=== PATIENT | female | born 1955 | race Caucasian/White ===

== ENCOUNTER 2018-10-17 00:26 | Inpatient (IN) | payer BC ==
[~2018-10-17] VITALS: Ht 154.9 cm; Wt 97.5 kg
--- NOTE | ~2018-10-17 | CON ---
[address] [address] CONSULTATION Name: AYUSH LUDWIG Room: [address] IN M.R.#: [id number] Admission: 10/17/18 Attend Phys: Mark Anthony Eldridge MD Discharge: Date of : 59 Report #: [id number] THIS REPORT FOR: //name// CC: Sawyer Eldridge DATE OF SERVICE: 10/17/2018 HISTORY OF PRESENT ILLNESS: This is a pleasant 63-year-old female with no significant past medical history who is presenting with intractable nausea, vomiting and diarrhea. The patient reports the symptoms started about 4 days back with acute onset abdominal pain and diarrhea. The patient had about 3-4 loose stools over the course of the day. The patient reports associated epigastric abdominal pain along with nausea and vomiting. The patient reports clear and bilious emesis and denies any hematemesis. The patient also reports her stools are yellow and brown in color and loose in consistency without any blood in them. The patient reports associated fevers, chills and malaise. These symptoms initially resolved a little bit 3 days back and then worsened on Thursday, which prompted her ER visit yesterday. The patient continues to report about 7/10 abdominal pain in the epigastric region. The pain is localized, nonradiating and appears to be relieved only by pain medication. It is associated with nausea. The patient denies any weight loss. The patient has never had an EGD, but reports she had a colonoscopy a few years back. PAST MEDICAL HISTORY: The patient has history of hypertension, depression, hypothyroidism and osteoporosis. PAST SURGICAL HISTORY: The patient had hysterectomy, appendectomy, cholecystectomy and tonsillectomy in the remote past. SOCIAL HISTORY: The patient denies smoking, alcohol or recreational drug use. FAMILY HISTORY: There is no family history of colorectal cancer. REVIEW OF SYSTEMS: Comprehensive 10-point review of systems is negative except for what is mentioned in the HPI. PHYSICAL EXAMINATION: VITAL SIGNS: Temperature 36.6, pulse rate 73, respirations 18, blood pressure 118/70, pulse ox 98% on room air. GENERAL: The patient is alert, awake, oriented x 3. HEENT: Pupils are equal, round, reactive to light and accommodation. Mucous membranes are moist. NECK: [place] [address] CONSULTATION Name: AYUSH LUDWIG Sushil Room: [address]#: [id number] Admission: 10/17/18 Attend Phys: Mark Anthony Eldridge MD Discharge: Date of : 59 Report #: [id number] LUNGS: Clear to auscultation bilaterally. CARDIOVASCULAR: Rate and rhythm regular, S1, S2 present. ABDOMEN: Soft. There is no distention, guarding or rigidity. EXTREMITIES: Warm and well perfused. There is no guarding or rigidity. LABORATORY DATA: Hemoglobin 14.4, hematocrit 42.9, platelet count 259, WBC count 7.3. Sodium 142, potassium 3.6, chloride 106, bicarbonate 26, BUN 13, creatinine 1.1, total bilirubin 0.4, AST 26, ALT 50, alkaline phosphatase 77. UA positive for bacteria and leukocyte esterase. IMAGING STUDIES: CT abdomen and pelvis demonstrates fluid building in the ascending and transverse colon with small amounts of formed stool in the distal colon. Appearance is suggestive of resolving gastroenteritis. Slight prominence of nodes in the mesenteric root with mild edema. ASSESSMENT AND PLAN: A pleasant 63-year-old female with past medical history of hypertension, depression, hypothyroidism who is presenting with acute onset of abdominal pain, nausea, vomiting, diarrhea, fevers and chills. The GI Service has been consulted for further evaluation. I suspect this is related to viral gastroenteritis and the patient will improve with supportive therapy. If the patient does not improve in the next 24-48 hours, other interventions can be considered. I would continue IV antibiotic and place the patient on GI cocktail as needed. Thank you for this consult. By: [id number] Betts MD /josé luis
[~2018-10-17 00:26] MED LIST: AMBIEN 10 MG TA10 MG PO; AMLODIPINE BESY10 MG PO; COZAAR 50 MG TA50 M1; COZAAR 50 MG TA50 M1 PO; DEXILANT60 MG; FLUOXETINE HCL40 MG PO; HYDROCODONE-AP1 EAC6 PO; LEVOTHROID100 MC1; NEURONTIN 300300 M1 PO; PHENERGAN 25 MG25 M1 PO; SYNTHROID; SYNTHROID112 MC1 PO; TRAMADOL 50 MG50 MG PO; XARELTO10 MG PO
[2018-10-17 00:33] VITALS: BP 144/75
[2018-10-17] MEDS ORDERED: ALENDRONATE SOD70 MG PO (00:40)
[2018-10-17 01:00] LABS: ABSOLUTE BASOPHILS 0.1 thou/uL (0.0-0.2); ABSOLUTE EOSINOPHILS 0.1 thou/uL (0.0-0.7); ABSOLUTE LYMPHOCYTES 1.9 thou/uL (0.8-5.3); ABSOLUTE MONOCYTES 0.5 thou/uL (0.0-1.2); ABSOLUTE NEUTROPHILS 4.7 thou/uL (1.6-8.1); BASOPHILS 0.9 %; EOSINOPHILS 1.4 %; HEMATOCRIT 42.7 % (37.0-47.0); HEMOGLOBIN 14.4 gm/dL (12.0-15.0); LYMPHOCYTES 25.5 %; MCH 31.3 pg (26.0-34.0); MCHC 33.7 g/dL (28.0-37.0); MONOCYTES 7.4 %; MPV 7.5 fl. (7.2-11.1); NUCLEATED RBCS 0 /100WBC; PLATELET COUNT* 259 thou/uL (150-400); POLYS 64.8 %; RBC 4.59 mil/uL (4.20-5.00); RDW-CV 13.7 % (10.5-14.5); WBC 7.3 thou/uL (4.0-11.0)
[2018-10-17 01:03] LABS: URINE BLOOD 3+ (Negative); URINE CLARITY CLEAR; URINE COLOR YELLOW; URINE GLUCOSE-RANDOM NEGATIVE (Negative); URINE KETONES TRACE (Negative); URINE LEUKOCYTES-REFLEX TRACE (Negative); URINE NITRITE-REFLEX NEGATIVE (Negative); URINE PROTEIN 2+ (Negative); URINE SPECIFIC GRAVITY 1.025 (1.005-1.030); URINE UROBILINOGEN 0.2 E.U./dl (0.2-1.0)
[2018-10-17 01:08] LABS: ALBUMIN 3.9 g/dL (3.4-5.0); CALCIUM 8.6 mg/dL (8.5-10.1); CREATININE 1.1 mg/dL (0.6-1.3); POTASSIUM 3.6 mmol/L (3.5-5.1); TOTAL BILIRUBIN 0.4 mg/dL (<0.1-1.0); TOTAL PROTEIN 7.3 g/dL (6.4-8.2)
[2018-10-17 01:09] LABS: URINE BILIRUBIN 1+ (Negative)
[2018-10-17 01:49] LABS: SQUAMOUS >10 Many /LPF (0-3)
[2018-10-17 01:50] LABS: CASTS None Seen /LPF (None Seen); MUCUS 0-3 Light strn/LPF (None Seen)
[2018-10-17 01:51] LABS: CRYSTALS None Seen /LPF (None Seen); URINE RBC 3-10 Few /HPF (0-2); URINE WBC-REFLEX 0-5 Rare /HPF (0-5)
[2018-10-17 02:04] LABS: ICTOTEST (BILI CONFIRMATORY) QNS (Negative)
[2018-10-17 05:43] VITALS: BP 124/64
[2018-10-17 05:50] VITALS: BP 124/66
--- NOTE | 2018-10-17 05:50 | NUR ---
ADMITTED TO FLOOR PER CART ACCOMPANIED BY ER STAFF WITH BELONGINGS. ORIENTED TO ROOM AND CALL LITE. HISTORY OBTAINED AND ASSESMENT PERFORMED, SEE ADMIT NOTES. PT CO MID ABD PAIN 6/10 AND NAUSEA RETURNING BUT NO VOMITING. LAC IVF PLACED ON PUMP FOR INFUSION. CLEAR LIQUID DIET. CALL LITE IN EASY REACH, WILL CONTINUE TO MONITOR AND PROVIDE CARES NEEDED.
[2018-10-17 09:00] VITALS: BP 118/70
--- NOTE | 2018-10-17 09:15 | NUR ---
REC'D REPORT FROM NOC RN, ASSUMED CARE OF PATIENT APPROX 0730. A&OX4. ABLE TO COMMUNICATE NEEDS TO STAFF. ASSESSMENT COMPLETE AND VS OBTAINED ON THIS MED/SURG PATIENT. VS WNL, O2 SATS 94% ON RA. C/O PAIN WITH LAST PRN GIVEN APPROX 4 A.M. PAIN NEEDS MADE KNOWN TO DR. STRONG WHO STATES HE WILL PUT IN ORDERS FOR PT NEEDS. HOURLY ROUNDING FOR SAFETY AND PT NEEDS. WALKWAYS CLEAR AND CALL LIGHT WITHIN REACH.
[2018-10-17 15:30] VITALS: BP 127/76
--- NOTE | 2018-10-18 03:05 | NUR ---
ASSUMED PT CARE @ 1930. PT A+O X 4. PT DENIES ANY N/V. PT STATES. "I'VE BEEN WALKING LAPS FROM THE WINDOW IN MY ROOM TO MY DOORWAY. WALKING IS HELPING MORE THAN ANYTHING WITH MY PAIN." PT AMBULATES W A STEADY GAIT. HS PRN PAIN MED EFFECTIVE. PT HAS BEEN RESTING W EYES CLOSED MOST OF NIGHT. CALL LIGHT IN REACH. HOURLY ROUNDING FOR SAFETY.
[2018-10-18 04:23] LABS: CALCIUM 7.4 mg/dL (8.5-10.1); CREATININE 0.9 mg/dL (0.6-1.3); POTASSIUM 3.9 mmol/L (3.5-5.1)
[2018-10-18 04:37] LABS: ABSOLUTE EOSINOPHILS 0.1 thou/uL (0.0-0.7); ABSOLUTE LYMPHOCYTES 1.7 thou/uL (0.8-5.3); ABSOLUTE MONOCYTES 0.7 thou/uL (0.0-1.2); ABSOLUTE NEUTROPHILS 3.2 thou/uL (1.6-8.1); BASOPHILS 0.2 %; EOSINOPHILS 1.5 %; HEMATOCRIT 36.4 % (37.0-47.0); LYMPHOCYTES 30.6 %; MCH 31.7 pg (26.0-34.0); MCHC 33.7 g/dL (28.0-37.0); MCV 94.1 fL (80.0-100.0); MONOCYTES 11.4 %; MPV 7.9 fl. (7.2-11.1); NUCLEATED RBCS 0 /100WBC; PLATELET COUNT* 217 thou/uL (150-400); POLYS 56.3 %; RBC 3.87 mil/uL (4.20-5.00); RDW-CV 13.8 % (10.5-14.5); WBC 5.7 thou/uL (4.0-11.0)
[2018-10-18 04:45] LABS: HEMOGLOBIN 12.3 gm/dL (12.0-15.0)
[2018-10-18 08:05] VITALS: BP 118/67
--- NOTE | 2018-10-18 14:24 | NUR ---
SW met with pt to complete initial assessment, introduce self, and SW role. Pt alert, oriented, pleasant. 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 Pt also continues to work and has been independent with mobility and ADLs. Pt hopeful to be able to improve and be able to return home to resume caregiving and working. SW to continue to follow to assist with safe dc planning.
[2018-10-18 16:12] VITALS: BP 147/76
--- NOTE | 2018-10-18 19:01 | NUR ---
PATIENT IS ALERT AND ORIENTED TODAY VERY PLEASANT, UP AD TAMY IN ROOM AND AMBULATING IN HALLWAYS. SOME PAIN THIS MORNING THAT IS CONTROLLED WITH IV PAIN MEDICATIONS. TOLERATED REGUALAR DIET FOR DINNER. VITAL SIGNS STABLE ON ROOM AIR. CALL LIGHT IS IN REACH WILL CONTINUE.
[2018-10-18 20:00] VITALS: BP 124/58
--- NOTE | 2018-10-19 03:27 | NUR ---
ASSUMED PT CARE @ 1930. PT REPORTS "FEELING MUCH BETTER TONIGHT." WALKING LAPS AROUND UNIT. STEADY GAIT. REPORTS "WALKING HELPS MY PAIN." PRN PAIN GIVEN X 1 @ BEDTIME. NO N/V REPORTED OR OBSERVED. CALL LIGHT IN REACH. HOURLY ROUNDING FOR SAFETY.
[2018-10-19 09:27] VITALS: BP 138/80
[2018-10-19 11:08] VITALS: BP 138/80
[2018-10-19] MEDS ORDERED: PRILOSEC OTC20 MG PO (11:16)
[2018-10-19 11:30] VITALS: BP 138/80
--- NOTE | 2018-10-19 11:31 | NUR ---
PATIENT IS ALERT AND ORIENTED TODAY VERY PLEASANT. UP AD TAMY IN ROOM AND AMBULATING IN HALLWAYS. NO COMPLAINTS OF PAIN TODAY, VITAL SIGNS STABLE ON ROOM AIR. PATIENT IS BEING DISCHARGED TO HOME. DISCHARGE INSTRUCTIONS AND WORK NOTE GIVEN TO PATIENT. PATIENT LEFT VIA WHEELCHAIR TO HOME WITH FRIEND.
== END 2018-10-19 11:31 | disposition home or self-care (01) | DRG 690 ==
LOC: M.ERS 00:26 → M.TBA-ER 04:43 → M.3W 04:43
PROVIDERS: Emergency Medicine; Internal Medicine
DX: N39.0 Urinary tract infection, site not specified (principal); A08.4 Viral intestinal infection, unspecified; Z96.641 Presence of right artificial hip joint; F32.9 Major depressive disorder, single episode, unspecified; I10 Essential (primary) hypertension; E03.9 Hypothyroidism, unspecified; F41.8 Other specified anxiety disorders; E86.0 Dehydration; M81.0 Age-related osteoporosis without current pathological fracture; Z88.1 Allergy status to other antibiotic agents; Z88.0 Allergy status to penicillin; Z88.8 Allergy status to other drugs, medicaments and biological substances; Z85.42 Personal history of malignant neoplasm of other parts of uterus; Z90.710 Acquired absence of both cervix and uterus; Z90.49 Acquired absence of other specified parts of digestive tract; Z90.89 Acquired absence of other organs; Z79.899 Other long term (current) drug therapy; Z80.0 Family history of malignant neoplasm of digestive organs

== ENCOUNTER → 2020-01-02 | Outpatient (CLI) | payer OTHER ==
[~2020-01-02] MED LIST changes: +ALENDRONATE SOD70 MG PO; +BUPROPION XL300 MG PO; +MELOXICAM15 MG PO; +PRILOSEC OTC20 MG PO
== END ==
LOC: M.PC 08:30
DX: M53.3 Sacrococcygeal disorders, not elsewhere classified (principal)

== ENCOUNTER → 2020-05-29 | Outpatient (CLI) | payer OTHER | LOC: M.LAB 16:42 | PROVIDERS: ATTEND Orthopaedic Surgery | DX: Z01.812 Encounter for preprocedural laboratory examination (principal); Z20.828 Contact with and (suspected) exposure to other viral communicable diseases; G56.01 Carpal tunnel syndrome, right upper limb ==

== ENCOUNTER 2020-06-05 09:05 | Emergency (ER) | payer OTHER ==
[~2020-06-05] VITALS: Ht 160 cm; Wt 99.8 kg
[2020-06-05] MEDS ORDERED: CALCIUM 500 +1 EAC1 PO (09:22)
[2020-06-05] MEDS ORDERED: RESTASIS1 EACH OPHTHALMIC (09:23)
[2020-06-05 10:29] LABS: URINE BILIRUBIN NEGATIVE (Negative); URINE BLOOD 1+ (Negative); URINE CLARITY CLEAR; URINE COLOR YELLOW; URINE GLUCOSE-RANDOM NEGATIVE (Negative); URINE KETONES NEGATIVE (Negative); URINE LEUKOCYTES NEGATIVE (Negative); URINE NITRITE NEGATIVE (Negative); URINE PROTEIN TRACE (Negative); URINE UROBILINOGEN 0.2 E.U./dl (0.2-1.0)
[2020-06-05 10:48] LABS: BACTERIA 1-9 Few /HPF (None Seen); CASTS None Seen /LPF (None Seen); CRYSTALS None Seen /LPF (None Seen); MUCUS None Seen strn/LPF (None Seen); SQUAMOUS 4-10 Moderate /LPF (0-3); URINE RBC 3-10 Few /HPF (0-2); URINE WBC 0-5 Rare /HPF (0-5)
[2020-06-05 10:48] LABS: ABSOLUTE EOSINOPHILS 0.1 thou/uL (0.0-0.7); ABSOLUTE LYMPHOCYTES 1.7 thou/uL (0.8-5.3); ABSOLUTE MONOCYTES 0.8 thou/uL (0.0-1.2); ABSOLUTE NEUTROPHILS 8.6 thou/uL (1.6-8.1); BASOPHILS 0.3 %; EOSINOPHILS 0.8 %; HEMATOCRIT 42.5 % (37.0-47.0); HEMOGLOBIN 14.4 gm/dL (12.0-15.0); MCH 31.9 pg (26.0-34.0); MCHC 33.9 g/dL (28.0-37.0); MCV 94.1 fL (80.0-100.0); MONOCYTES 7.3 %; MPV 7.2 fl. (7.2-11.1); NUCLEATED RBCS 0 /100WBC; PLATELET COUNT* 277 thou/uL (150-400); POLYS 76.6 %; RBC 4.52 mil/uL (4.20-5.00); WBC 11.2 thou/uL (4.0-11.0)
[2020-06-05 10:56] LABS: CALCIUM 8.7 mg/dL (8.5-10.1); CREATININE 1.3 mg/dL (0.6-1.3); POTASSIUM 3.9 mmol/L (3.5-5.1)
[2020-06-05] MEDS ORDERED: COLACE100 MG PO (11:40)
[2020-06-05] MEDS ORDERED: BENTYL 20 MG TA20 M1 PO (11:40)
[2020-06-05 11:57] VITALS: BP 162/89
== END 2020-06-05 11:58 | disposition home or self-care (01) ==
LOC: M.ERS 09:05
PROVIDERS: Personal Emergency Response Attendant
DX: K59.00 Constipation, unspecified (principal); K62.5 Hemorrhage of anus and rectum; I10 Essential (primary) hypertension; Z88.6 Allergy status to analgesic agent; Z88.1 Allergy status to other antibiotic agents; Z88.5 Allergy status to narcotic agent; Z88.0 Allergy status to penicillin; Z88.8 Allergy status to other drugs, medicaments and biological substances; Z85.42 Personal history of malignant neoplasm of other parts of uterus; Z90.710 Acquired absence of both cervix and uterus; Z90.49 Acquired absence of other specified parts of digestive tract; Z96.641 Presence of right artificial hip joint; Z90.89 Acquired absence of other organs